=== PATIENT | male | born 1985 | race Caucasian/White ===

== ENCOUNTER 2025-01-19 19:47 | Inpatient (IN) | payer OTHER ==
[~2025-01-19] VITALS: Ht 180.3 cm; Wt 90.2 kg
[2025-01-19] MEDS ORDERED: FAMOtidine 10 MG/ML (4ML VIAL) IV ONE (20:00)
[2025-01-19] MEDS ORDERED: PIPERACILLIN/TAZOBACTAM SODIUM 3.375 GM VIAL IV ONE ×2 (20:00→21:34)
[2025-01-19] MEDS ORDERED: METHYLPREDNISOLONE SOD SUCC 125 MG VIAL IV ONE (20:00)
[2025-01-19] MEDS ORDERED: MIDAZOLAM HCL 50 MG in 0.9 % SODIUM CHLORIDE 50 ML IV SCH (20:00)
[2025-01-19] MEDS ORDERED: 0.9 % SODIUM CHLORIDE 1,000 ML IV ONE (20:00)
[2025-01-19] MEDS ORDERED: NOREPINEPHRINE BITARTRATE 8 MG in DEXTROSE 5 % IN WATER 250 ML IV SCH (20:00)
[2025-01-19] MEDS ORDERED: EPINEPHRINE HCL/PF 1 MG/ML AMPUL IV ONE (20:00)
[2025-01-19 20:38] LABS: BASO % 0.6 % (0.1-1.2); EOS # 0.16 (0.04-0.54); EOS % 0.9 % (0.7-7.0); LYMPH # 3.61 (1.18-3.74); LYMPH % 20.6 % (19.3-53.1); MEAN PLATELET VOLUME 11.10 fl (9.4-12.4); MONO # 0.61 (0.24-0.82); MONO % 3.5 % (4.7-12.5); NEUT # 12.10 (1.56-6.13); NEUT % 69.3 % (34.0-71.1); RED CELL DISTRIBUTION WIDTH 12.6 % (11.6-14.4)
[2025-01-19 20:45] LABS: URINE APPEARANCE Clear; URINE BILIRRUBIN Negative (NEGATIVE); URINE BLOOD Small; URINE COLOR Yellow; URINE KETONE Negative (NEGATIVE); URINE LEUKOCYTE Negative; URINE NITRATE Negative; URINE UROBILINOGEN 0.2 E.U./dl
[2025-01-19 20:48] LABS: URINE BACTERIA 245.9 uL (0.0-1933); URINE CAST 7.07 uL (0.0-1.40); URINE EPITHELIAL CELLS 4.5 uL (0.0-38.8); URINE RBC 3.0 uL (0.0-20.8); URINE WBC 21.5 uL (0.0-23.2)
[2025-01-19 21:00] LABS: INR 1.26
[2025-01-19 21:06] LABS: ALT/SGPT 122.0 U/L (12-78); AST/SGOT 133.0 U/L (15-37); BILIRUBIN TOTAL 0.35 mg/dL (0.3-1.2); BUN CREA RATIO 10.0 (7.0-25.0); CREATININE SERUM 1.41 mg/dL (0.70-1.30); GFR 56.25; GLOBULINA 2.6 G/DL (2.4-3.5); OSMOLALITY SERUM 291.0 MOSM/KG (275-295)
[2025-01-19 21:09] LABS: GLUCOSE FASTING 298.0 mg/dL (65-100)
[2025-01-19 21:13] LABS: BAND MAN 8.0 %; BASOPHIL MAN 1.0 %; EOSINOPHIL MAN 1.0 %; LYMPHOCYTE MAN 26.0 %; MONOCYTE MAN 2.0 %; NEUTROPHILS MAN 58.0 %; URINE GLUCOSE 100 MG/DL (NEGATIVE); URINE PROTEIN 100 (NEGATIVE)
[2025-01-19 21:14] LABS: METAMYELOCYTE 3.0 %; MYELOCYTE 1.0 %
[2025-01-19] MEDS ORDERED: FAMOTIDINE/PF 20 MG/2 ML VIAL ONE (21:34)
[2025-01-19] MEDS ORDERED: METHYLPREDNISOLONE SOD SUCC 125 MG VIAL ONE (21:34)
[2025-01-19 22:44] LABS: ABG PH 7.281 (7.35-7.45); BICARBONATE 25.0 mmol/l (23-25)
[2025-01-19 22:45] LABS: ABG PO2 45.6 mmHg (80-100); o2 100 %
[2025-01-19] MEDS ORDERED: INSULIN REGULAR, HUMAN 1,000 UNIT/10 ML UNITS IV ONE (22:45)
[2025-01-20] MEDS ORDERED: METHYLPREDNISOLONE SOD SUCC 125 MG VIAL IV ONE (00:30)
[2025-01-20] MEDS ORDERED: IPRATROPIUM BROMIDE 0.5 MG/2.5 ML AMPUL.NEB IH SCH ×2 (01:00→20:00)
[2025-01-20] MEDS ORDERED: LEVALBUTEROL HCL 1.25 MG/3 ML SOLUTION IH SCH (01:00)
[2025-01-20] MEDS ORDERED: METHYLPREDNISOLONE SOD SUCC 125 MG VIAL ONE (01:22)
[2025-01-20] MEDS ORDERED: LEVALBUTEROL HCL 1.25 MG/3 ML SOLUTION IH ONE ×2 (02:10→05:44)
[2025-01-20] MEDS ORDERED: IPRATROPIUM BROMIDE 0.5 MG/2.5 ML AMPUL.NEB IH ONE ×3 (02:10→17:41)
[2025-01-20 03:01] LABS: ABG PH 7.348 (7.35-7.45)
[2025-01-20 03:02] LABS: ABG PO2 43.1 mmHg (80-100); BICARBONATE 25.0 mmol/l (23-25); o2 100 %
[2025-01-20] MEDS ORDERED: PROPOFOL 10,000 MCG/ML VIAL ONE (05:17)
[2025-01-20] MEDS ORDERED: PROPOFOL 100 ML IV SCH ×2 (06:30→14:45)
[2025-01-20 06:44] LABS: ABG PH 7.346 (7.35-7.45); BICARBONATE 24.2 mmol/l (23-25)
[2025-01-20 06:45] LABS: ABG PO2 46.4 mmHg (80-100)
[2025-01-20 06:46] LABS: o2 100 %
[2025-01-20] MEDS ORDERED: IPRATROPIUM/ALBUTEROL SULFATE 3 ML AMPUL.NEB IH ONE ×2 (07:43)
[2025-01-20] MEDS ORDERED: METHYLPREDNISOLONE SOD SUCC 500 MG VIAL IV STA (07:49)
[2025-01-20] MEDS ORDERED: IPRATROPIUM/ALBUTEROL SULFATE 3 ML AMPUL.NEB IH SCH (09:00)
[2025-01-20] MEDS ORDERED: PIPERACILLIN/TAZOBACTAM SODIUM 3.375 GM VIAL IV SCH (12:03)
[2025-01-20] MEDS ORDERED: PIPERACILLIN/TAZOBACTAM SODIUM 3.375 GM VIAL IV ONE ×2 (13:03→22:31)
[2025-01-20 13:06] LABS: ABG PH 7.336 (7.35-7.45); ABG PO2 67.7 mmHg (80-100); BICARBONATE 24.9 mmol/l (23-25)
[2025-01-20 15:03] LABS: o2 100 %
[2025-01-20] MEDS ORDERED: LEVALBUTEROL HCL 0.63 MG/3 ML SOLUTION IH ONE (17:41)
[2025-01-20] MEDS ORDERED: PIPERACILLIN/TAZOBACTAM SODIUM 4.5 GM in 0.9 % SODIUM CHLORIDE 100 ML IV SCH (18:38)
[2025-01-20] MEDS ORDERED: POTASSIUM CHLORIDE IN WATER 40 MEQ/100 ML PIGGYBAG IV SCH (18:40)
[2025-01-20] MEDS ORDERED: ENOXAPARIN SODIUM 40 MG/0.4 ML SYRINGE SUBCUTANEO SCH (18:41)
[2025-01-20] MEDS ORDERED: PANTOPRAZOLE SODIUM 40 MG in 0.9 % SODIUM CHLORIDE 8 ML IV PUSH SCH (18:41)
[2025-01-20] MEDS ORDERED: 0.9 % SODIUM CHLORIDE 1,000 ML IV SCH (18:45)
[2025-01-20] MEDS ORDERED: ALBUTEROL SULFATE 3 ML/2.5 MG AMPUL.NEB IH SCH (20:00)
[2025-01-20 21:58] VITALS: BP 130/60; O2SAT 99
[2025-01-20] MEDS ORDERED: ENOXAPARIN SODIUM 40 MG/0.4 ML SYRINGE SUBCUTANEO ONE (22:31)
[2025-01-20] MEDS ORDERED: POTASSIUM CHLORIDE IN WATER 40 MEQ/100 ML PIGGYBAG IV ONE (22:31)
[2025-01-20 22:52] VITALS: BP 123/61
[2025-01-21] VITALS (17 sets, daily range): BP systolic 105–139; BP diastolic 52–79; O2SAT 94–100
[2025-01-21] MEDS ORDERED: IPRATROPIUM BROMIDE 0.5 MG/2.5 ML AMPUL.NEB IH ONE (00:40)
[2025-01-21] MEDS ORDERED: ALBUTEROL SULFATE 3 ML/2.5 MG AMPUL.NEB IH ONE (00:41)
[2025-01-21] MEDS ORDERED: PROPOFOL 10,000 MCG/ML VIAL ONE ×2 (02:57→08:26)
[2025-01-21 03:52] LABS: ALT/SGPT 66.0 U/L (12-78); AST/SGOT 56.0 U/L (15-37); BILIRUBIN TOTAL 0.46 mg/dL (0.3-1.2); BUN CREA RATIO 17.0 (7.0-25.0); CREATININE SERUM 0.99 mg/dL (0.70-1.30); GFR 84.6; GLOBULINA 2.2 G/DL (2.4-3.5); GLUCOSE FASTING 130.0 mg/dL (65-100); OSMOLALITY SERUM 281.0 MOSM/KG (275-295)
[2025-01-21 04:16] LABS: METHADONE NEGATIVE (NEGATIVE); OPIATES NEGATIVE (NEGATIVE); THC ( Cannabinoids) NEGATIVE (NEGATIVE)
[2025-01-21 04:34] LABS: COCAINE POSITIVE (NEGATIVE)
[2025-01-21] MEDS ORDERED: PIPERACILLIN/TAZOBACTAM SODIUM 3.375 GM VIAL IV ONE (06:37)
[2025-01-21] MEDS ORDERED: CHLORHEXIDINE GLUCONATE 120 ML BOTTLE TOP ONE (08:45)
[2025-01-21 10:17] LABS: ABG PH 7.380 (7.35-7.45); ABG PO2 91.1 mmHg (80-100); BICARBONATE 26.8 mmol/l (23-25); o2 100 %
[2025-01-21] MEDS ORDERED: MIDAZOLAM HCL 2 MG/2 ML VIAL IV PUSH STA (11:05)
[2025-01-21] MEDS ORDERED: PROPOFOL 10,000 MCG/ML VIAL IV PUSH STA (11:07)
[2025-01-21] MEDS ORDERED: ALBUTEROL SULFATE 3 ML/2.5 MG AMPUL.NEB IH SCH (14:00)
[2025-01-21] MEDS ORDERED: FentaNYL CITRATE/PF 1,000 MCG in 0.9 % SODIUM CHLORIDE 100 ML IV SCH (16:30)
[2025-01-21] MEDS ORDERED: SODIUM CHLORIDE 0.9% IV SCH (20:00)
[2025-01-21] MEDS ORDERED: MIDAZOLAM HCL IV SCH (20:00)
[2025-01-22] VITALS (17 sets, daily range): BP systolic 110–151; BP diastolic 52–78; O2SAT 92–100
[2025-01-22] MEDS ORDERED: DEXTROSE 10 % IN WATER 1,000 ML IV SCH (07:00)
[2025-01-22 08:44] LABS: BASO % 0.3 % (0.1-1.2); EOS # 0.11 (0.04-0.54); EOS % 0.9 % (0.7-7.0); LYMPH # 0.68 (1.18-3.74); LYMPH % 5.4 % (19.3-53.1); MEAN PLATELET VOLUME 10.80 fl (9.4-12.4); MONO # 0.25 (0.24-0.82); MONO % 2.0 % (4.7-12.5); NEUT # 11.37 (1.56-6.13); NEUT % 91.0 % (34.0-71.1); RED CELL DISTRIBUTION WIDTH 13.2 % (11.6-14.4)
[2025-01-22 09:10] LABS: INR 1.15
[2025-01-22 09:22] LABS: ALT/SGPT 47.0 U/L (12-78); AST/SGOT 36.0 U/L (15-37); BILIRUBIN TOTAL 0.58 mg/dL (0.3-1.2); BILIRUBIN,CONJUGATED 0.18 mg/dL (0.0-0.2); BUN CREA RATIO 15.0 (7.0-25.0); CREATININE SERUM 0.89 mg/dL (0.70-1.30); GFR 95.66; GLOBULINA 2.7 G/DL (2.4-3.5); GLUCOSE FASTING 96.0 mg/dL (65-100); OSMOLALITY SERUM 281.0 MOSM/KG (275-295)
[2025-01-22] MEDS ORDERED: CHLORHEXIDINE GLUCONATE 15ML BRUSH KIT MM SCH (09:23)
[2025-01-22] MEDS ORDERED: POLYVINYL ALCOHOL 15 ML DROPS OP SCH (09:23)
[2025-01-22] MEDS ORDERED: NAPH,MB-DB/K PH,MBDB 1 PKT PACKET PO SCH (10:35)
[2025-01-22] MEDS ORDERED: POTASSIUM PHOS,M-BASIC-D-BASIC 3 MM/ML VIAL IV SCH (13:00)
[2025-01-22 17:05] LABS: ABG PH 7.376 (7.35-7.45); ABG PO2 76.3 mmHg (80-100); BICARBONATE 27.2 mmol/l (23-25); o2 100 %
[2025-01-22] MEDS ORDERED: MIDAZOLAM HCL 100 MG in 0.9 % SODIUM CHLORIDE 100 ML IV SCH (20:00)
[2025-01-23] VITALS (15 sets, daily range): BP systolic 110–132; BP diastolic 66–83; O2SAT 89–100
[2025-01-23 09:18] LABS: ABG PH 7.382 (7.35-7.45); ABG PO2 91.6 mmHg (80-100); BICARBONATE 24.9 mmol/l (23-25)
[2025-01-23 12:22] LABS: BASO % 0.5 % (0.1-1.2); EOS # 0.47 (0.04-0.54); EOS % 4.7 % (0.7-7.0); LYMPH # 0.37 (1.18-3.74); LYMPH % 3.7 % (19.3-53.1); MEAN PLATELET VOLUME 10.90 fl (9.4-12.4); MONO # 0.46 (0.24-0.82); MONO % 4.6 % (4.7-12.5); NEUT # 8.62 (1.56-6.13); NEUT % 85.7 % (34.0-71.1); RED CELL DISTRIBUTION WIDTH 13.7 % (11.6-14.4)
[2025-01-23 13:57] LABS: ALT/SGPT 35.0 U/L (12-78); AST/SGOT 31.0 U/L (15-37); BILIRUBIN TOTAL 0.41 mg/dL (0.3-1.2); BUN CREA RATIO 19.0 (7.0-25.0); CREATININE SERUM 0.73 mg/dL (0.70-1.30); GFR 120.24; GLOBULINA 2.8 G/DL (2.4-3.5); GLUCOSE FASTING 100.0 mg/dL (65-100); OSMOLALITY SERUM 286.0 MOSM/KG (275-295)
[2025-01-23] MEDS ORDERED: POTASSIUM PHOS,M-BASIC-D-BASIC 3 MM/ML VIAL PO ONE (14:15)
[2025-01-23 15:23] LABS: o2 100 %
[2025-01-23] MEDS ORDERED: POTASSIUM PHOS,M-BASIC-D-BASIC 3 MM/ML VIAL IV ONE (17:00)
[2025-01-23] MEDS ORDERED: DEXTROSE 5 % AND 0.9 % NACL 1,000 ML IV SCH (22:30)
[2025-01-24] VITALS (13 sets, daily range): BP systolic 117–136; BP diastolic 66–76; O2SAT 90–98
[2025-01-24] MEDS ORDERED: PANTOPRAZOLE SODIUM 40 MG/VIAL VIAL IV PUSH SCH (09:00)
[2025-01-24 09:06] LABS: ABG PH 7.345 (7.35-7.45); ABG PO2 86.0 mmHg (80-100); BICARBONATE 27.3 mmol/l (23-25)
[2025-01-24 11:39] LABS: o2 90 %
[2025-01-24 14:39] LABS: URINE APPEARANCE Clear; URINE BILIRRUBIN Negative (NEGATIVE); URINE BLOOD Negative; URINE COLOR Dark Yellow; URINE KETONE Trace (NEGATIVE); URINE LEUKOCYTE Trace; URINE NITRATE Negative; URINE UROBILINOGEN 1.0 E.U./dl
[2025-01-24 14:43] LABS: URINE BACTERIA 23.2 uL (0.0-1933); URINE EPITHELIAL CELLS 30.2 uL (0.0-38.8); URINE RBC 38.7 uL (0.0-20.8); URINE WBC 14.7 uL (0.0-23.2)
[2025-01-24 15:16] LABS: URINE CAST 0.29 uL (0.0-1.40); URINE GLUCOSE 100 MG/DL (NEGATIVE); URINE PROTEIN 100 (NEGATIVE)
[2025-01-24] MEDS ORDERED: POTASSIUM PHOS,M-BASIC-D-BASIC 45mM/15ml VIAL IV ONE (22:28)
[2025-01-24] MEDS ORDERED: POTASSIUM PHOS,M-BASIC-D-BASIC 3 MM/ML VIAL IV SCH (22:31)
[2025-01-25] VITALS (14 sets, daily range): BP systolic 121–149; BP diastolic 64–86; O2SAT 92–111
[2025-01-25 06:54] LABS: ABG PH 7.286 (7.35-7.45); ABG PO2 85.9 mmHg (80-100); BICARBONATE 28.4 mmol/l (23-25)
[2025-01-25 06:55] LABS: o2 90 %
[2025-01-25 06:57] LABS: BASO % 0.3 % (0.1-1.2); EOS # 0.32 (0.04-0.54); EOS % 2.5 % (0.7-7.0); LYMPH # 0.50 (1.18-3.74); LYMPH % 3.9 % (19.3-53.1); MEAN PLATELET VOLUME 10.60 fl (9.4-12.4); MONO # 0.63 (0.24-0.82); MONO % 4.9 % (4.7-12.5); NEUT # 11.14 (1.56-6.13); NEUT % 87.0 % (34.0-71.1); RED CELL DISTRIBUTION WIDTH 14.0 % (11.6-14.4)
[2025-01-25 07:23] LABS: ALT/SGPT 28.0 U/L (12-78); AST/SGOT 25.0 U/L (15-37); BILIRUBIN TOTAL 0.36 mg/dL (0.3-1.2); BUN CREA RATIO 18.0 (7.0-25.0); CREATININE SERUM 0.87 mg/dL (0.70-1.30); GFR 98.2; GLOBULINA 3.0 G/DL (2.4-3.5); GLUCOSE FASTING 123.0 mg/dL (65-100); OSMOLALITY SERUM 295.0 MOSM/KG (275-295)
[2025-01-25] MEDS ORDERED: MEROPENEM 500 MG/VIAL VIAL IV SCH (12:00)
[2025-01-25] MEDS ORDERED: FLUCONAZOLE IN NACL,ISO-OSM 200 MG/100 ML PIGGYBAG IV SCH (12:00)
[2025-01-26] VITALS (14 sets, daily range): BP systolic 130–161; BP diastolic 68–85; O2SAT 88–95
[2025-01-26 07:14] LABS: BASO % 0.4 % (0.1-1.2); EOS # 0.04 (0.04-0.54); EOS % 0.2 % (0.7-7.0); LYMPH # 0.50 (1.18-3.74); LYMPH % 2.5 % (19.3-53.1); MEAN PLATELET VOLUME 10.70 fl (9.4-12.4); MONO # 0.75 (0.24-0.82); MONO % 3.7 % (4.7-12.5); NEUT # 18.68 (1.56-6.13); NEUT % 91.6 % (34.0-71.1); RED CELL DISTRIBUTION WIDTH 14.5 % (11.6-14.4)
[2025-01-26 07:46] LABS: ABG PH 7.250 (7.35-7.45); ABG PO2 71.5 mmHg (80-100); BICARBONATE 34.5 mmol/l (23-25)
[2025-01-26 07:51] LABS: BUN CREA RATIO 22.0 (7.0-25.0); CREATININE SERUM 0.72 mg/dL (0.70-1.30); GFR 122.17
[2025-01-26 07:58] LABS: GLUCOSE FASTING 336.0 mg/dL (65-100); OSMOLALITY SERUM 314.0 MOSM/KG (275-295)
[2025-01-26] MEDS ORDERED: LINEZOLID IN DEXTROSE 5% 300 ML IV SCH (08:10)
[2025-01-26] MEDS ORDERED: METOPROLOL TARTRATE 25 MG TABLET PO SCH (09:00)
[2025-01-26 09:28] LABS: o2 100 %
[2025-01-26 09:48] LABS: URINE APPEARANCE Cloudy; URINE BACTERIA 18.3 uL (0.0-1933); URINE BILIRRUBIN Negative (NEGATIVE); URINE BLOOD Moderate; URINE CAST 1.91 uL (0.0-1.40); URINE COLOR Yellow; URINE EPITHELIAL CELLS 46.6 uL (0.0-38.8); URINE KETONE Negative (NEGATIVE); URINE LEUKOCYTE Negative; URINE NITRATE Negative; URINE RBC 219.3 uL (0.0-20.8); URINE UROBILINOGEN 1.0 E.U./dl; URINE WBC 13.9 uL (0.0-23.2)
[2025-01-26 10:07] LABS: TYPE CELLS SQUAMOUS; URINE GLUCOSE 100 MG/DL (NEGATIVE); URINE PROTEIN 100 (NEGATIVE)
[2025-01-26] MEDS ORDERED: CISATRACURIUM BESYLATE 100 MG in 0.9 % SODIUM CHLORIDE 250 ML IV SCH ×2 (13:45→14:15)
[2025-01-26] MEDS ORDERED: CISATRACURIUM BESYLATE 20 MG/10 ML VIAL IV PUSH ONE (14:15)
[2025-01-26] MEDS ORDERED: SODIUM CL 0.9% 250 ML IV.SOLN ONE ×4 (14:15→14:16)
[2025-01-26] MEDS ORDERED: FentaNYL CITRATE/PF 1,000 MCG in 0.9 % SODIUM CHLORIDE 100 ML IV SCH (14:30)
[2025-01-26 14:35] LABS: ABG PH 7.275 (7.35-7.45); ABG PO2 68.7 mmHg (80-100); BICARBONATE 36.0 mmol/l (23-25)
[2025-01-26 14:42] LABS: o2 100 %
[2025-01-26] MEDS ORDERED: levoFLOXacin IN DEXTROSE 5 % 150 ML IV SCH (17:00)
[2025-01-26 17:34] LABS: ABG PO2 69.1 mmHg (80-100); BICARBONATE 37.2 mmol/l (23-25)
[2025-01-26] MEDS ORDERED: DEXAMETHASONE SODIUM PHOSP/PF 10 MG/ML VIAL IV SCH (17:45)
[2025-01-26 18:07] LABS: ABG PO2 77.7 mmHg (80-100); BICARBONATE 37.7 mmol/l (23-25)
[2025-01-26 18:24] LABS: ABG PH 7.195 (7.35-7.45)
[2025-01-26 18:28] LABS: o2 100 %
[2025-01-26 18:31] LABS: ABG PH 7.182 (7.35-7.45)
[2025-01-26 18:32] LABS: o2 100 %
[2025-01-26] MEDS ORDERED: INSULIN LISPRO 1,000 UNIT/10 ML UNITS SUBCUTANEO PRN (21:00)
[2025-01-26] MEDS ORDERED: DEXTROSE 50 % IN WATER 0.5 G/ML VIAL IV PRN (21:00)
[2025-01-26] MEDS ORDERED: SODIUM BICARBONATE 50MEQ/50ML VIAL IV ONE (21:55)
[2025-01-26] MEDS ORDERED: SODIUM BICARBONATE 100 MEQ in DEXTROSE 5 % IN WATER 1,000 ML IV SCH (22:00)
[2025-01-26 23:47] LABS: ABG PO2 89.3 mmHg (80-100); BICARBONATE 38.8 mmol/l (23-25)
[2025-01-27] VITALS (12 sets, daily range): BP systolic 125–155; BP diastolic 70–86; O2SAT 90–100
[2025-01-27 00:07] LABS: ABG PH 7.183 (7.35-7.45)
[2025-01-27 00:08] LABS: o2 100 %
[2025-01-27 06:16] LABS: ABG PO2 118.1 mmHg (80-100); BICARBONATE 39.9 mmol/l (23-25)
[2025-01-27 08:01] LABS: BASO % 0.3 % (0.1-1.2); EOS # 0.00 (0.04-0.54); EOS % 0.0 % (0.7-7.0); LYMPH # 0.34 (1.18-3.74); LYMPH % 1.6 % (19.3-53.1); MEAN PLATELET VOLUME 11.90 fl (9.4-12.4); MONO # 0.24 (0.24-0.82); MONO % 1.1 % (4.7-12.5); NEUT # 20.90 (1.56-6.13); NEUT % 95.5 % (34.0-71.1); RED CELL DISTRIBUTION WIDTH 14.5 % (11.6-14.4)
[2025-01-27 08:20] LABS: ABG PH 7.197 (7.35-7.45); o2 100 %
[2025-01-27 08:26] LABS: ALT/SGPT 20.0 U/L (12-78); AST/SGOT 16.0 U/L (15-37); BILIRUBIN TOTAL 0.27 mg/dL (0.3-1.2); BUN CREA RATIO 33.0 (7.0-25.0); CREATININE SERUM 0.66 mg/dL (0.70-1.30); GFR 135.08; GLOBULINA 3.4 G/DL (2.4-3.5); GLUCOSE FASTING 161.0 mg/dL (65-100); OSMOLALITY SERUM 307.0 MOSM/KG (275-295)
[2025-01-27] MEDS ORDERED: SODIUM BICARBONATE 100 MEQ in DEXTROSE 5 % IN WATER 1,000 ML IV SCH (10:30)
[2025-01-28] VITALS (12 sets, daily range): BP systolic 96–129; BP diastolic 60–73; O2SAT 97–100
[2025-01-28 05:07] LABS: ABG PH 7.234 (7.35-7.45); ABG PO2 63.2 mmHg (80-100); BICARBONATE 45.4 mmol/l (23-25)
[2025-01-28 05:11] LABS: o2 80 %
[2025-01-28 07:21] LABS: BASO % 0.2 % (0.1-1.2); EOS # 0.00 (0.04-0.54); EOS % 0.0 % (0.7-7.0); LYMPH # 0.46 (1.18-3.74); LYMPH % 1.9 % (19.3-53.1); MEAN PLATELET VOLUME 12.50 fl (9.4-12.4); MONO # 0.72 (0.24-0.82); MONO % 3.0 % (4.7-12.5); NEUT # 22.40 (1.56-6.13); NEUT % 92.8 % (34.0-71.1); RED CELL DISTRIBUTION WIDTH 14.6 % (11.6-14.4)
[2025-01-28 07:37] LABS: BUN CREA RATIO 38.0 (7.0-25.0); CREATININE SERUM 0.9 mg/dL (0.70-1.30); GFR 94.44; GLUCOSE FASTING 172.0 mg/dL (65-100)
[2025-01-28 08:11] LABS: OSMOLALITY SERUM 315.0 MOSM/KG (275-295)
[2025-01-28 11:27] LABS: ABG PH 7.274 (7.35-7.45); ABG PO2 150.4 mmHg (80-100); BICARBONATE 45.3 mmol/l (23-25)
[2025-01-28] MEDS ORDERED: CISATRACURIUM BESYLATE IV SCH (12:45)
[2025-01-28] MEDS ORDERED: FENTANYL CITRATE IV SCH (12:45)
[2025-01-28] MEDS ORDERED: WATER IV SCH ×3 (12:45→13:00)
[2025-01-28] MEDS ORDERED: DEXTROSE 5% IV SCH ×3 (12:45→13:00)
[2025-01-28] MEDS ORDERED: MIDAZOLAM HCL IV SCH (13:00)
[2025-01-28] MEDS ORDERED: VANCOMYCIN HCL 5 MG/ML REDILUIDO IV STA (14:28)
[2025-01-28 15:08] LABS: o2 80 %
[2025-01-28 20:27] LABS: ABG PH 7.324 (7.35-7.45); ABG PO2 93.9 mmHg (80-100); BICARBONATE 44.6 mmol/l (23-25)
[2025-01-28 20:39] LABS: o2 60 %
[2025-01-29] VITALS (13 sets, daily range): BP systolic 109–132; BP diastolic 68–82; O2SAT 97–100
[2025-01-29] MEDS ORDERED: VANCOMYCIN HCL 5 MG/ML REDILUIDO IV SCH (01:00)
[2025-01-29 04:42] LABS: ABG PH 7.278 (7.35-7.45); ABG PO2 120.8 mmHg (80-100); BICARBONATE 44.4 mmol/l (23-25)
[2025-01-29 12:40] LABS: BASO % 0.2 % (0.1-1.2); EOS # 0.00 (0.04-0.54); EOS % 0.0 % (0.7-7.0); LYMPH # 0.44 (1.18-3.74); LYMPH % 2.2 % (19.3-53.1); MEAN PLATELET VOLUME 12.30 fl (9.4-12.4); MONO # 0.67 (0.24-0.82); MONO % 3.4 % (4.7-12.5); NEUT # 18.32 (1.56-6.13); NEUT % 92.8 % (34.0-71.1); RED CELL DISTRIBUTION WIDTH 14.3 % (11.6-14.4)
[2025-01-29 12:51] LABS: ABG PH 7.346 (7.35-7.45); ABG PO2 76.1 mmHg (80-100); BICARBONATE 45.7 mmol/l (23-25)
[2025-01-29 12:55] LABS: BUN CREA RATIO 48.0 (7.0-25.0); CREATININE SERUM 0.79 mg/dL (0.70-1.30); GFR 109.77
[2025-01-29 13:01] LABS: GLUCOSE FASTING 225.0 mg/dL (65-100); OSMOLALITY SERUM 312.0 MOSM/KG (275-295)
[2025-01-29 19:31] LABS: o2 60 %
[2025-01-29 19:34] LABS: o2 50 %
[2025-01-29 21:53] LABS: D DIMER > 35.20 MG/L
[2025-01-30] VITALS (14 sets, daily range): BP systolic 112–155; BP diastolic 64–95; O2SAT 98–100
[2025-01-30 06:09] LABS: ABG PH 7.413 (7.35-7.45); ABG PO2 84.3 mmHg (80-100); BICARBONATE 43.3 mmol/l (23-25)
[2025-01-30 06:23] LABS: o2 60 %
[2025-01-30 10:31] LABS: BASO % 0.2 % (0.1-1.2); EOS # 0.00 (0.04-0.54); EOS % 0.0 % (0.7-7.0); LYMPH # 0.52 (1.18-3.74); LYMPH % 2.0 % (19.3-53.1); MEAN PLATELET VOLUME 12.10 fl (9.4-12.4); MONO # 0.59 (0.24-0.82); MONO % 2.3 % (4.7-12.5); NEUT # 24.34 (1.56-6.13); NEUT % 93.9 % (34.0-71.1); RED CELL DISTRIBUTION WIDTH 13.8 % (11.6-14.4)
[2025-01-30] MEDS ORDERED: ENOXAPARIN SODIUM 100 MG/ML SYRINGE SUBCUTANEO NR (12:00)
[2025-01-30] MEDS ORDERED: MUPIROCIN 15 GM OINT..GM TUBE NASAL SCH (17:00)
[2025-01-30] MEDS ORDERED: VANCOMYCIN HCL 5 MG/ML REDILUIDO IV SCH (21:00)
[2025-01-30] MEDS ORDERED: ENOXAPARIN SODIUM 100 MG/ML SYRINGE SUBCUTANEO SCH (21:00)
[2025-01-30 23:12] LABS: INR 1.66
[2025-01-31] VITALS (14 sets, daily range): BP systolic 101–157; BP diastolic 58–736; O2SAT 97–100
[2025-01-31 06:22] LABS: ABG PH 7.380 (7.35-7.45); ABG PO2 134.1 mmHg (80-100); BICARBONATE 45.9 mmol/l (23-25)
[2025-01-31 06:46] LABS: o2 50 %
[2025-01-31 06:46] LABS: BASO % 0.2 % (0.1-1.2); EOS # 0.00 (0.04-0.54); EOS % 0.0 % (0.7-7.0); LYMPH # 0.35 (1.18-3.74); LYMPH % 1.8 % (19.3-53.1); MEAN PLATELET VOLUME 11.70 fl (9.4-12.4); MONO # 0.36 (0.24-0.82); MONO % 1.8 % (4.7-12.5); NEUT # 18.77 (1.56-6.13); NEUT % 94.9 % (34.0-71.1); RED CELL DISTRIBUTION WIDTH 13.7 % (11.6-14.4)
[2025-01-31 07:40] LABS: BUN CREA RATIO 50.0 (7.0-25.0); CREATININE SERUM 0.66 mg/dL (0.70-1.30); GFR 135.08
[2025-01-31 07:50] LABS: OSMOLALITY SERUM 308.0 MOSM/KG (275-295)
[2025-01-31 07:51] LABS: GLUCOSE FASTING 422.0 mg/dL (65-100)
[2025-01-31] MEDS ORDERED: CHLORHEXIDINE GLUCONATE 120 ML BOTTLE TOP SCH (09:00)
[2025-01-31] MEDS ORDERED: METOPROLOL TARTRATE 25 MG TABLET PO SCH (09:00)
[2025-01-31] MEDS ORDERED: PHYTONADIONE 10 MG/ML AMPUL SUBCUTANEO SCH (09:08)
[2025-01-31 09:36] LABS: ABG PH 7.366 (7.35-7.45); ABG PO2 90.8 mmHg (80-100); BICARBONATE 42.0 mmol/l (23-25)
[2025-01-31 10:00] LABS: o2 50 %
[2025-01-31 10:42] LABS: ALT/SGPT 21 U/L (12-78); AST/SGOT 27 U/L (15-37); BILIRUBIN TOTAL 0.42 mg/dL (0.3-1.2); BUN CREA RATIO 57 (7.0-25.0); CREATININE SERUM 0.58 mg/dL (0.70-1.30); GFR 156.80; GLOBULINA 3.3 G/DL (2.4-3.5); GLUCOSE FASTING 161 mg/dL (65-100)
[2025-01-31 12:27] LABS: OSMOLALITY SERUM 311 MOSM/KG (275-295)
[2025-01-31] MEDS ORDERED: PHYTONADIONE 10 MG/ML AMPUL SUBCUTANEO NR (13:00)
[2025-02-01] VITALS (13 sets, daily range): BP systolic 117–147; BP diastolic 62–88; O2SAT 94–100
[2025-02-01 06:27] LABS: ABG PH 7.421 (7.35-7.45); ABG PO2 149.5 mmHg (80-100); BICARBONATE 44.2 mmol/l (23-25)
[2025-02-01 06:53] LABS: o2 60 %
[2025-02-01] MEDS ORDERED: PHYTONADIONE 10 MG/ML AMPUL SUBCUTANEO SCH (09:00)
[2025-02-01 12:53] LABS: BASO % 0.1 % (0.1-1.2); EOS # 0.01 (0.04-0.54); EOS % 0.1 % (0.7-7.0); LYMPH # 0.73 (1.18-3.74); LYMPH % 4.6 % (19.3-53.1); MEAN PLATELET VOLUME 11.00 fl (9.4-12.4); MONO # 0.47 (0.24-0.82); MONO % 3.0 % (4.7-12.5); NEUT # 14.30 (1.56-6.13); NEUT % 90.7 % (34.0-71.1); RED CELL DISTRIBUTION WIDTH 13.4 % (11.6-14.4)
[2025-02-01 13:56] LABS: BUN CREA RATIO 47.0 (7.0-25.0); CREATININE SERUM 0.62 mg/dL (0.70-1.30); GFR 145.18; GLUCOSE FASTING 129.0 mg/dL (65-100); OSMOLALITY SERUM 302.0 MOSM/KG (275-295)
[2025-02-01] MEDS ORDERED: ACETAZOLAMIDE 250 MG TABLET PO SCH (17:00)
[2025-02-02] VITALS (13 sets, daily range): BP systolic 128–146; BP diastolic 70–89; O2SAT 96–100
[2025-02-02 06:15] LABS: ABG PH 7.447 (7.35-7.45); ABG PO2 80.3 mmHg (80-100); BICARBONATE 28.8 mmol/l (23-25)
[2025-02-02 06:37] LABS: o2 50 %
[2025-02-02] MEDS ORDERED: EPOETIN ALFA-EPBX 10,000 UNIT/ML VIAL (Retacrit) SUBCUTANEO SCH (12:00)
[2025-02-02] MEDS ORDERED: DEXTROSE 50 % IN WATER 0.5 G/ML VIAL IV PRN (16:50)
[2025-02-02] MEDS ORDERED: SODIUM CHLORIDE FOR INHALATION 1 VIAL.NEB IH SCH (17:00)
[2025-02-02] MEDS ORDERED: VANCOMYCIN HCL 5 MG/ML REDILUIDO IV SCH (21:00)
[2025-02-03] VITALS (14 sets, daily range): BP systolic 102–146; BP diastolic 55–89; O2SAT 90–100
[2025-02-03 05:03] LABS: ABG PH 7.415 (7.35-7.45); BICARBONATE 24.8 mmol/l (23-25)
[2025-02-03 05:14] LABS: o2 50 %
[2025-02-03 07:24] LABS: ABG PO2 51.6 mmHg (80-100)
[2025-02-03 07:35] LABS: BASO % 0.1 % (0.1-1.2); EOS # 0.04 (0.04-0.54); EOS % 0.1 % (0.7-7.0); LYMPH # 0.90 (1.18-3.74); LYMPH % 3.3 % (19.3-53.1); MEAN PLATELET VOLUME 10.80 fl (9.4-12.4); MONO # 0.61 (0.24-0.82); MONO % 2.3 % (4.7-12.5); NEUT # 24.84 (1.56-6.13); NEUT % 92.4 % (34.0-71.1); RED CELL DISTRIBUTION WIDTH 13.2 % (11.6-14.4)
[2025-02-03 07:54] LABS: ALT/SGPT 62.0 U/L (12-78); AST/SGOT 57.0 U/L (15-37); BILIRUBIN TOTAL 1.11 mg/dL (0.3-1.2); BUN CREA RATIO 34.0 (7.0-25.0); CREATININE SERUM 0.65 mg/dL (0.70-1.30); GFR 137.48; GLOBULINA 3.3 G/DL (2.4-3.5); GLUCOSE FASTING 103.0 mg/dL (65-100); OSMOLALITY SERUM 292.0 MOSM/KG (275-295)
[2025-02-03] MEDS ORDERED: MIDAZOLAM HCL 100 MG in 0.9 % SODIUM CHLORIDE 100 ML IV SCH (08:15)
[2025-02-03 11:18] LABS: URINE APPEARANCE Clear; URINE BILIRRUBIN Small (NEGATIVE); URINE BLOOD Negative; URINE COLOR Dark Yellow; URINE GLUCOSE Negative (NEGATIVE); URINE KETONE Trace (NEGATIVE); URINE LEUKOCYTE Negative; URINE NITRATE Negative; URINE PROTEIN 30 (NEGATIVE); URINE UROBILINOGEN 1.0 E.U./dl
[2025-02-03 11:19] LABS: URINE BACTERIA 47.7 uL (0.0-1933); URINE EPITHELIAL CELLS 14.4 uL (0.0-38.8); URINE RBC 20.3 uL (0.0-20.8); URINE WBC 40.1 uL (0.0-23.2)
[2025-02-03 12:32] LABS: URINE CAST 0.14 uL (0.0-1.40)
[2025-02-03] MEDS ORDERED: LIDOCAINE HCL 1% 10ML VIAL ONE (12:53)
[2025-02-03] MEDS ORDERED: SODIUM CHLORIDE FOR INHALATION 1 VIAL.NEB IH SCH (21:00)
[2025-02-04] VITALS (14 sets, daily range): BP systolic 94–134; BP diastolic 51–81; O2SAT 94–100
[2025-02-04 06:25] LABS: ABG PH 7.352 (7.35-7.45); ABG PO2 207.0 mmHg (80-100); BICARBONATE 30.2 mmol/l (23-25)
[2025-02-04 06:59] LABS: o2 100 %
[2025-02-04] MEDS ORDERED: FentaNYL CITRATE/PF 1,000 MCG in 0.9 % SODIUM CHLORIDE 100 ML IV SCH (12:00)
[2025-02-05] VITALS (16 sets, daily range): BP systolic 95–126; BP diastolic 52–71; O2SAT 94–100
[2025-02-05 06:50] LABS: ALT/SGPT 47.0 U/L (12-78); AST/SGOT 32.0 U/L (15-37); BILIRUBIN TOTAL 0.45 mg/dL (0.3-1.2); BUN CREA RATIO 40.0 (7.0-25.0); CREATININE SERUM 0.63 mg/dL (0.70-1.30); GFR 142.53; GLOBULINA 3.1 G/DL (2.4-3.5); GLUCOSE FASTING 145.0 mg/dL (65-100); OSMOLALITY SERUM 290.0 MOSM/KG (275-295)
[2025-02-05 08:33] LABS: ABG PH 7.300 (7.35-7.45); ABG PO2 80.2 mmHg (80-100); BICARBONATE 33.8 mmol/l (23-25)
[2025-02-05 11:22] LABS: o2 50 %
[2025-02-05] MEDS ORDERED: DEXTROSE 5% IV SCH ×2 (11:45→17:00)
[2025-02-05] MEDS ORDERED: WATER IV SCH ×2 (11:45→17:00)
[2025-02-05] MEDS ORDERED: FENTANYL CITRATE IV SCH (11:45)
[2025-02-05 14:14] LABS: ABG PH 7.300 (7.35-7.45); ABG PO2 82.5 mmHg (80-100); BICARBONATE 34.5 mmol/l (23-25)
[2025-02-05 14:52] LABS: o2 50 %
[2025-02-05] MEDS ORDERED: SULBACTAM NA IV SCH (17:00)
[2025-02-05] MEDS ORDERED: AMPICILLIN SODIUM IV SCH (17:00)
[2025-02-05] MEDS ORDERED: DEXAMETHASONE SODIUM PHOSPHATE 4 MG/ML VIAL IV SCH (17:00)
[2025-02-05] MEDS ORDERED: DEXAMETHASONE SODIUM PHOSP/PF 10 MG/ML VIAL IV SCH (17:00)
[2025-02-05] MEDS ORDERED: SULFAMETHOXAZOLE/TRIMETHOPRIM 16 MG/ML 10ML VIAL IV SCH (18:00)
[2025-02-06] VITALS (12 sets, daily range): BP systolic 96–119; BP diastolic 57–69; O2SAT 94–100
[2025-02-06 05:23] LABS: ABG PH 7.303 (7.35-7.45); ABG PO2 79.7 mmHg (80-100); BICARBONATE 34.3 mmol/l (23-25)
[2025-02-06 06:04] LABS: o2 60 %
[2025-02-06 06:45] LABS: BASO % 0.1 % (0.1-1.2); EOS # 0.00 (0.04-0.54); EOS % 0.0 % (0.7-7.0); LYMPH # 0.20 (1.18-3.74); LYMPH % 0.9 % (19.3-53.1); MEAN PLATELET VOLUME 10.80 fl (9.4-12.4); MONO # 0.64 (0.24-0.82); MONO % 2.7 % (4.7-12.5); NEUT # 22.28 (1.56-6.13); NEUT % 95.0 % (34.0-71.1); RED CELL DISTRIBUTION WIDTH 13.2 % (11.6-14.4)
[2025-02-06] MEDS ORDERED: DEXTROSE 5%-WATER 100ML IV.SOLN ONE (07:09)
[2025-02-06 07:40] LABS: ALT/SGPT 36.0 U/L (12-78); AST/SGOT 16.0 U/L (15-37); BILIRUBIN TOTAL 0.48 mg/dL (0.3-1.2); BUN CREA RATIO 37.0 (7.0-25.0); CREATININE SERUM 0.52 mg/dL (0.70-1.30); GFR 177.86; GLOBULINA 3.1 G/DL (2.4-3.5); GLUCOSE FASTING 141.0 mg/dL (65-100); OSMOLALITY SERUM 286.0 MOSM/KG (275-295)
[2025-02-06] MEDS ORDERED: CEFIDEROCOL SULFATE TOSYLATE 1 GM VIAL IV NR (09:00)
[2025-02-06] MEDS ORDERED: CEFIDEROCOL SULFATE TOSYLATE 1 GM VIAL IV SCH ×3 (12:00→18:00)
[2025-02-06] MEDS ORDERED: SULBACTAM IV SCH (13:00)
[2025-02-06] MEDS ORDERED: AMPICILLIN SODIUM IV SCH (13:00)
[2025-02-07] VITALS (14 sets, daily range): BP systolic 104–136; BP diastolic 61–84; O2SAT 97–100
[2025-02-07 06:28] LABS: BASO % 0.1 % (0.1-1.2); EOS # 0.00 (0.04-0.54); EOS % 0.0 % (0.7-7.0); LYMPH # 0.29 (1.18-3.74); LYMPH % 1.7 % (19.3-53.1); MEAN PLATELET VOLUME 10.70 fl (9.4-12.4); MONO # 0.45 (0.24-0.82); MONO % 2.6 % (4.7-12.5); NEUT # 16.49 (1.56-6.13); NEUT % 94.1 % (34.0-71.1); RED CELL DISTRIBUTION WIDTH 13.4 % (11.6-14.4)
[2025-02-07 06:50] LABS: ABG PH 7.445 (7.35-7.45); ABG PO2 64.3 mmHg (80-100); BICARBONATE 38.4 mmol/l (23-25)
[2025-02-07 06:57] LABS: o2 60 %
[2025-02-07 07:13] LABS: ALT/SGPT 39.0 U/L (12-78); AST/SGOT 24.0 U/L (15-37); BILIRUBIN TOTAL 0.58 mg/dL (0.3-1.2); BUN CREA RATIO 37.0 (7.0-25.0); CREATININE SERUM 0.51 mg/dL (0.70-1.30); GFR 181.89; GLOBULINA 3.1 G/DL (2.4-3.5); GLUCOSE FASTING 159.0 mg/dL (65-100); OSMOLALITY SERUM 289.0 MOSM/KG (275-295)
[2025-02-07] MEDS ORDERED: AMINO ACIDS/PROTEIN HYDROLYS 30 ML BLIST.PACK NGT SCH (19:30)
[2025-02-08] VITALS (13 sets, daily range): BP systolic 102–136; BP diastolic 60–83; O2SAT 88–99
[2025-02-08] MEDS ORDERED: ACETAMINOPHEN 500 MG GEL..CAP PO ONE (03:54)
[2025-02-08] MEDS ORDERED: ACETAMINOPHEN 325 MG TABLET PO PRN (04:15)
[2025-02-08 05:35] LABS: BASO % 0.4 % (0.1-1.2); EOS # 0.09 (0.04-0.54); EOS % 0.5 % (0.7-7.0); LYMPH # 0.77 (1.18-3.74); LYMPH % 4.1 % (19.3-53.1); MEAN PLATELET VOLUME 10.50 fl (9.4-12.4); MONO # 0.50 (0.24-0.82); MONO % 2.7 % (4.7-12.5); NEUT # 16.36 (1.56-6.13); NEUT % 87.4 % (34.0-71.1); RED CELL DISTRIBUTION WIDTH 15.0 % (11.6-14.4)
[2025-02-08 06:09] LABS: ABG PH 7.409 (7.35-7.45); ABG PO2 70.2 mmHg (80-100); BICARBONATE 42.3 mmol/l (23-25)
[2025-02-08 06:21] LABS: o2 70 %
[2025-02-08 06:41] LABS: BAND MAN 8.0 %; LYMPHOCYTE MAN 5.0 %; MONOCYTE MAN 3.0 %; NEUTROPHILS MAN 82.0 %
[2025-02-08] MEDS ORDERED: ACETAMINOPHEN 500 MG GEL..CAP PO PRN (08:15)
[2025-02-08] MEDS ORDERED: VANCOMYCIN HCL 5 MG/ML REDILUIDO IV STA (09:24)
[2025-02-08 11:32] LABS: COVID-19 AG NEGATIVE (NEGATIVE)
[2025-02-08 11:55] LABS: URINE APPEARANCE Clear; URINE BILIRRUBIN Negative (NEGATIVE); URINE BLOOD Negative; URINE COLOR Yellow; URINE GLUCOSE Negative (NEGATIVE); URINE KETONE Negative (NEGATIVE); URINE LEUKOCYTE Negative; URINE NITRATE Negative; URINE PROTEIN 30 (NEGATIVE); URINE UROBILINOGEN 1.0 E.U./dl
[2025-02-08 11:58] LABS: URINE BACTERIA 9.7 uL (0.0-1933); URINE EPITHELIAL CELLS 3.4 uL (0.0-38.8); URINE RBC 8.2 uL (0.0-20.8); URINE WBC 2.3 uL (0.0-23.2)
[2025-02-08 12:02] LABS: URINE CAST 0.58 uL (0.0-1.40)
[2025-02-08] MEDS ORDERED: VANCOMYCIN HCL 5 MG/ML REDILUIDO IV SCH (17:00)
[2025-02-08 22:32] LABS: ABG PH 7.408 (7.35-7.45)
[2025-02-08 22:33] LABS: ABG PO2 76.1 mmHg (80-100)
[2025-02-08 22:34] LABS: BICARBONATE 42.7 mmol/l (23-25)
[2025-02-08 22:35] LABS: o2 70 %
[2025-02-09] VITALS (18 sets, daily range): BP systolic 91–134; BP diastolic 49–82; O2SAT 88–113
[2025-02-09] MEDS ORDERED: NOREPINEPHRINE BITARTRATE 1 MG/ML AMPUL IV ONE (01:59)
[2025-02-09] MEDS ORDERED: NOREPINEPHRINE BITARTRATE 8 MG in DEXTROSE 5 % IN WATER 250 ML IV SCH (03:30)
[2025-02-09 05:16] LABS: ABG PH 7.426 (7.35-7.45); ABG PO2 103.4 mmHg (80-100); BICARBONATE 44.2 mmol/l (23-25)
[2025-02-09] MEDS ORDERED: ANIDULAFUNGIN 100 MG VIAL IV STA (08:09)
[2025-02-09 08:14] LABS: o2 100 %
[2025-02-09] MEDS ORDERED: SULFAMETHOXAZOLE/TRIMETHOPRIM 16 MG/ML 10ML VIAL IV STA (08:16)
[2025-02-09 09:31] LABS: BASO % 0.6 % (0.1-1.2); EOS # 0.32 (0.04-0.54); EOS % 1.3 % (0.7-7.0); LYMPH # 0.99 (1.18-3.74); LYMPH % 4.1 % (19.3-53.1); MEAN PLATELET VOLUME 10.20 fl (9.4-12.4); MONO # 0.42 (0.24-0.82); MONO % 1.7 % (4.7-12.5); NEUT # 21.72 (1.56-6.13); NEUT % 88.8 % (34.0-71.1); RED CELL DISTRIBUTION WIDTH 14.8 % (11.6-14.4)
[2025-02-09 10:10] LABS: BAND MAN 5.0 %; LYMPHOCYTE MAN 1.0 %; NEUTROPHILS MAN 87.0 %
[2025-02-09 10:11] LABS: EOSINOPHIL MAN 3.0 %; METAMYELOCYTE 1.0 %; MYELOCYTE 2.0 %
[2025-02-09 10:34] LABS: ALT/SGPT 81.0 U/L (12-78); AST/SGOT 37.0 U/L (15-37); BILIRUBIN TOTAL 0.76 mg/dL (0.3-1.2); BUN CREA RATIO 30.0 (7.0-25.0); CREATININE SERUM 0.6 mg/dL (0.70-1.30); GFR 150.78; GLOBULINA 3.9 G/DL (2.4-3.5); GLUCOSE FASTING 106.0 mg/dL (65-100); LDH 327.0 U/L (87-241); OSMOLALITY SERUM 287.0 MOSM/KG (275-295)
[2025-02-09] MEDS ORDERED: DEXMEDETOMIDINE IN 0.9 % NACL 100 ML IV SCH (14:00)
[2025-02-09] MEDS ORDERED: SULFAMETHOXAZOLE/TRIMETHOPRIM 16 MG/ML 10ML VIAL IV SCH (17:00)
[2025-02-10] VITALS (18 sets, daily range): BP systolic 93–126; BP diastolic 57–799; O2SAT 87–93
[2025-02-10 05:47] LABS: ABG PH 7.384 (7.35-7.45); ABG PO2 67.0 mmHg (80-100); BICARBONATE 49.1 mmol/l (23-25)
[2025-02-10 08:16] LABS: o2 100 %
[2025-02-10] MEDS ORDERED: ANIDULAFUNGIN 100 MG VIAL IV SCH (09:00)
[2025-02-10] MEDS ORDERED: MIDAZOLAM HCL 2 MG/2 ML VIAL IV PUSH ONE (11:15)
[2025-02-10] MEDS ORDERED: MIDAZOLAM HCL 2 MG/2 ML VIAL IV ONE (15:00)
[2025-02-11] VITALS (14 sets, daily range): BP systolic 99–127; BP diastolic 57–74; O2SAT 87–94
[2025-02-11 05:39] LABS: ABG PH 7.368 (7.35-7.45); ABG PO2 79.0 mmHg (80-100); BICARBONATE 48.0 mmol/l (23-25)
[2025-02-11 05:44] LABS: o2 100 %
[2025-02-12] VITALS (14 sets, daily range): BP systolic 109–137; BP diastolic 48–70; O2SAT 88–99
[2025-02-12 07:49] LABS: ABG PH 7.408 (7.35-7.45); ABG PO2 86.4 mmHg (80-100)
[2025-02-12 07:50] LABS: BICARBONATE 43.7 mmol/l (23-25)
[2025-02-12 07:53] LABS: o2 100 %
[2025-02-12 12:39] LABS: BASO % 0.3 % (0.1-1.2); EOS # 0.30 (0.04-0.54); EOS % 1.1 % (0.7-7.0); LYMPH # 0.59 (1.18-3.74); LYMPH % 2.2 % (19.3-53.1); MEAN PLATELET VOLUME 10.10 fl (9.4-12.4); MONO # 0.55 (0.24-0.82); MONO % 2.0 % (4.7-12.5); NEUT # 25.15 (1.56-6.13); NEUT % 93.1 % (34.0-71.1); RED CELL DISTRIBUTION WIDTH 14.4 % (11.6-14.4)
[2025-02-12 16:08] LABS: ALT/SGPT 32.0 U/L (12-78); AST/SGOT 17.0 U/L (15-37); BILIRUBIN TOTAL 0.66 mg/dL (0.3-1.2); BUN CREA RATIO 61.0 (7.0-25.0); CREATININE SERUM 0.46 mg/dL (0.70-1.30); GFR 204.89; GLOBULINA 3.5 G/DL (2.4-3.5); GLUCOSE FASTING 105.0 mg/dL (65-100); OSMOLALITY SERUM 285.0 MOSM/KG (275-295)
[2025-02-13] VITALS (13 sets, daily range): BP systolic 97–137; BP diastolic 55–85; O2SAT 90–95
[2025-02-13 08:18] LABS: ABG PH 7.337 (7.35-7.45)
[2025-02-13 08:19] LABS: ABG PO2 86.5 mmHg (80-100); BICARBONATE 44.1 mmol/l (23-25)
[2025-02-13 08:20] LABS: o2 100 %
[2025-02-13] MEDS ORDERED: DEXMEDETOMIDINE HCL IV SCH (16:00)
[2025-02-13] MEDS ORDERED: SODIUM CHLORIDE 0.9% IV SCH (16:00)
[2025-02-13] MEDS ORDERED: PROPOFOL 100 ML IV SCH (19:00)
[2025-02-13] MEDS ORDERED: FENTANYL CITRATE IV SCH (22:45)
[2025-02-13] MEDS ORDERED: DEXTROSE 5% IV SCH (22:45)
[2025-02-13] MEDS ORDERED: WATER IV SCH (22:45)
[2025-02-14] VITALS (20 sets, daily range): BP systolic 93–134; BP diastolic 45–78; O2SAT 91–98
[2025-02-14] MEDS ORDERED: NOREPINEPHRINE BITARTRATE 1 MG/ML AMPUL IV ONE (05:31)
[2025-02-14] MEDS ORDERED: NOREPINEPHRINE BITARTRATE 8 MG in DEXTROSE 5 % IN WATER 250 ML IV SCH (06:15)
[2025-02-14 07:03] LABS: BASO % 0.2 % (0.1-1.2); EOS # 0.48 (0.04-0.54); EOS % 1.8 % (0.7-7.0); LYMPH # 0.88 (1.18-3.74); LYMPH % 3.3 % (19.3-53.1); MEAN PLATELET VOLUME 9.90 fl (9.4-12.4); MONO # 0.42 (0.24-0.82); MONO % 1.6 % (4.7-12.5); NEUT # 24.36 (1.56-6.13); NEUT % 92.3 % (34.0-71.1); RED CELL DISTRIBUTION WIDTH 14.2 % (11.6-14.4)
[2025-02-14 07:34] LABS: BUN CREA RATIO 54.0 (7.0-25.0); CREATININE SERUM 0.41 mg/dL (0.70-1.30); GFR 233.98; GLUCOSE FASTING 115.0 mg/dL (65-100); OSMOLALITY SERUM 285.0 MOSM/KG (275-295)
[2025-02-14] MEDS ORDERED: levoFLOXacin IN DEXTROSE 5 % 5 MG/ML PIGGYBAG IV STA (09:28)
[2025-02-14 09:55] LABS: ABG PH 7.355 (7.35-7.45); ABG PO2 62.2 mmHg (80-100); BICARBONATE 43.2 mmol/l (23-25)
[2025-02-14 11:04] LABS: o2 85 %
[2025-02-15] VITALS (23 sets, daily range): BP systolic 94–161; BP diastolic 46–68; O2SAT 89–98
[2025-02-15 07:02] LABS: BASO % 0.2 % (0.1-1.2); EOS # 0.45 (0.04-0.54); EOS % 2.1 % (0.7-7.0); LYMPH # 0.76 (1.18-3.74); LYMPH % 3.5 % (19.3-53.1); MEAN PLATELET VOLUME 10.90 fl (9.4-12.4); MONO # 0.51 (0.24-0.82); MONO % 2.4 % (4.7-12.5); NEUT # 19.60 (1.56-6.13); NEUT % 90.4 % (34.0-71.1); RED CELL DISTRIBUTION WIDTH 14.2 % (11.6-14.4)
[2025-02-15 08:52] LABS: ABG PH 7.389 (7.35-7.45); ABG PO2 64.0 mmHg (80-100); BICARBONATE 42.7 mmol/l (23-25); o2 100 %
[2025-02-15] MEDS ORDERED: levoFLOXacin IN DEXTROSE 5 % 5 MG/ML PIGGYBAG IV SCH (09:00)
[2025-02-16] VITALS (22 sets, daily range): BP systolic 102–152; BP diastolic 53–69; O2SAT 39–100
[2025-02-16 07:00] LABS: BASO % 0.2 % (0.1-1.2); EOS # 0.29 (0.04-0.54); EOS % 1.8 % (0.7-7.0); LYMPH # 0.74 (1.18-3.74); LYMPH % 4.6 % (19.3-53.1); MEAN PLATELET VOLUME 10.60 fl (9.4-12.4); MONO # 0.43 (0.24-0.82); MONO % 2.7 % (4.7-12.5); NEUT # 14.43 (1.56-6.13); NEUT % 89.5 % (34.0-71.1); RED CELL DISTRIBUTION WIDTH 14.4 % (11.6-14.4)
[2025-02-16 07:33] LABS: BUN CREA RATIO 44.0 (7.0-25.0); CREATININE SERUM 0.36 mg/dL (0.70-1.30); GFR 271.87; GLUCOSE FASTING 105.0 mg/dL (65-100); OSMOLALITY SERUM 287.0 MOSM/KG (275-295)
[2025-02-16 08:38] LABS: ABG PH 7.422 (7.35-7.45); BICARBONATE 46.5 mmol/l (23-25)
[2025-02-16 08:53] LABS: BASO % 0.3 % (0.1-1.2); EOS # 0.36 (0.04-0.54); EOS % 2.4 % (0.7-7.0); LYMPH # 0.81 (1.18-3.74); LYMPH % 5.5 % (19.3-53.1); MEAN PLATELET VOLUME 10.00 fl (9.4-12.4); MONO # 0.43 (0.24-0.82); MONO % 2.9 % (4.7-12.5); NEUT # 12.91 (1.56-6.13); NEUT % 87.6 % (34.0-71.1); RED CELL DISTRIBUTION WIDTH 14.5 % (11.6-14.4)
[2025-02-16 10:08] LABS: ALT/SGPT 24.0 U/L (12-78); AST/SGOT 17.0 U/L (15-37); BILIRUBIN TOTAL 0.41 mg/dL (0.3-1.2); BUN CREA RATIO 42.0 (7.0-25.0); CREATININE SERUM 0.36 mg/dL (0.70-1.30); GFR 271.87; GLOBULINA 3.3 G/DL (2.4-3.5); GLUCOSE FASTING 100.0 mg/dL (65-100); OSMOLALITY SERUM 288.0 MOSM/KG (275-295)
[2025-02-16 13:03] LABS: ABG PO2 50.7 mmHg (80-100); o2 100 %
[2025-02-17] VITALS (19 sets, daily range): BP systolic 100–134; BP diastolic 56–76; O2SAT 83–91
[2025-02-17 08:55] LABS: ABG PH 7.414 (7.35-7.45); BICARBONATE 47.2 mmol/l (23-25); o2 100 %
[2025-02-17 08:56] LABS: ABG PO2 44.7 mmHg (80-100)
[2025-02-17 09:46] LABS: BASO % 0.3 % (0.1-1.2); EOS # 0.43 (0.04-0.54); EOS % 2.4 % (0.7-7.0); LYMPH # 0.89 (1.18-3.74); LYMPH % 4.9 % (19.3-53.1); MEAN PLATELET VOLUME 10.30 fl (9.4-12.4); MONO # 0.58 (0.24-0.82); MONO % 3.2 % (4.7-12.5); NEUT # 16.10 (1.56-6.13); NEUT % 88.3 % (34.0-71.1); RED CELL DISTRIBUTION WIDTH 15.4 % (11.6-14.4)
[2025-02-17] MEDS ORDERED: METHYLPREDNISOLONE SOD SUCC 40 MG VIAL IV STA (12:18)
[2025-02-17] MEDS ORDERED: METHYLPREDNISOLONE SOD SUCC 125 MG VIAL IV SCH (18:00)
[2025-02-18] VITALS (18 sets, daily range): BP systolic 101–125; BP diastolic 59–67; O2SAT 89–93
[2025-02-18 08:12] LABS: BASO % 0.2 % (0.1-1.2); EOS # 0.00 (0.04-0.54); EOS % 0.0 % (0.7-7.0); LYMPH # 0.50 (1.18-3.74); LYMPH % 3.2 % (19.3-53.1); MEAN PLATELET VOLUME 10.80 fl (9.4-12.4); MONO # 0.15 (0.24-0.82); MONO % 0.9 % (4.7-12.5); NEUT # 15.03 (1.56-6.13); NEUT % 94.8 % (34.0-71.1); RED CELL DISTRIBUTION WIDTH 14.7 % (11.6-14.4)
[2025-02-18 08:22] LABS: BUN CREA RATIO 35 (7.0-25.0); CREATININE SERUM 0.48 mg/dL (0.70-1.30); GFR 195.07; GLUCOSE FASTING 170 mg/dL (65-100); OSMOLALITY SERUM 287 MOSM/KG (275-295)
[2025-02-18 08:31] LABS: ABG PH 7.275 (7.35-7.45); BICARBONATE 52.2 mmol/l (23-25)
[2025-02-18 08:36] LABS: ABG PO2 74.8 mmHg (80-100); o2 100 %
[2025-02-19] VITALS (14 sets, daily range): BP systolic 114–141; BP diastolic 63–78; O2SAT 72–95
[2025-02-19 07:53] LABS: BASO % 0.1 % (0.1-1.2); EOS # 0.00 (0.04-0.54); EOS % 0.0 % (0.7-7.0); LYMPH # 0.59 (1.18-3.74); LYMPH % 3.0 % (19.3-53.1); MEAN PLATELET VOLUME 9.90 fl (9.4-12.4); MONO # 0.40 (0.24-0.82); MONO % 2.0 % (4.7-12.5); NEUT # 18.41 (1.56-6.13); NEUT % 93.7 % (34.0-71.1); RED CELL DISTRIBUTION WIDTH 14.7 % (11.6-14.4)
[2025-02-19] MEDS ORDERED: CISATRACURIUM BESYLATE 20 MG/10 ML VIAL IV PUSH NR (08:00)
[2025-02-19] MEDS ORDERED: CISATRACURIUM BESYLATE 100 MG in 0.9 % SODIUM CHLORIDE 250 ML IV SCH (08:00)
[2025-02-19 08:08] LABS: ABG PH 7.390 (7.35-7.45)
[2025-02-19 08:09] LABS: ABG PO2 37.5 mmHg (80-100); BICARBONATE 50.7 mmol/l (23-25)
[2025-02-19 08:10] LABS: o2 100 %
[2025-02-19 08:52] LABS: ALT/SGPT 36.0 U/L (12-78); AST/SGOT 22.0 U/L (15-37); BILIRUBIN TOTAL 0.42 mg/dL (0.3-1.2); BUN CREA RATIO 47.0 (7.0-25.0); CREATININE SERUM 0.47 mg/dL (0.70-1.30); GFR 199.86; GLOBULINA 3.9 G/DL (2.4-3.5); GLUCOSE FASTING 188.0 mg/dL (65-100); OSMOLALITY SERUM 293.0 MOSM/KG (275-295)
[2025-02-19 18:38] LABS: BASO % 0.1 % (0.1-1.2); EOS # 0.00 (0.04-0.54); EOS % 0.0 % (0.7-7.0); LYMPH # 0.53 (1.18-3.74); LYMPH % 3.0 % (19.3-53.1); MEAN PLATELET VOLUME 9.80 fl (9.4-12.4); MONO # 0.74 (0.24-0.82); MONO % 4.1 % (4.7-12.5); NEUT # 16.41 (1.56-6.13); NEUT % 91.6 % (34.0-71.1); RED CELL DISTRIBUTION WIDTH 14.5 % (11.6-14.4)
[2025-02-19 20:50] LABS: ABG PH 7.335 (7.35-7.45); BICARBONATE 51.4 mmol/l (23-25)
[2025-02-19 21:12] LABS: ABG PO2 49.9 mmHg (80-100)
[2025-02-19 21:13] LABS: o2 80 %
[2025-02-20] VITALS (15 sets, daily range): BP systolic 124–150; BP diastolic 67–85; O2SAT 88–95
[2025-02-20 07:05] LABS: BASO % 0.1 % (0.1-1.2); EOS # 0.00 (0.04-0.54); EOS % 0.0 % (0.7-7.0); LYMPH # 0.46 (1.18-3.74); LYMPH % 3.2 % (19.3-53.1); MEAN PLATELET VOLUME 10.40 fl (9.4-12.4); MONO # 0.52 (0.24-0.82); MONO % 3.6 % (4.7-12.5); NEUT # 13.15 (1.56-6.13); NEUT % 92.1 % (34.0-71.1); RED CELL DISTRIBUTION WIDTH 14.4 % (11.6-14.4)
[2025-02-20 07:29] LABS: ALT/SGPT 34.0 U/L (12-78); AST/SGOT 19.0 U/L (15-37); BILIRUBIN TOTAL 0.39 mg/dL (0.3-1.2); BUN CREA RATIO 83.0 (7.0-25.0); CREATININE SERUM 0.3 mg/dL (0.70-1.30); GFR 335.53; GLOBULINA 3.6 G/DL (2.4-3.5); GLUCOSE FASTING 149.0 mg/dL (65-100); OSMOLALITY SERUM 292.0 MOSM/KG (275-295)
[2025-02-20 09:07] LABS: ABG PH 7.410 (7.35-7.45)
[2025-02-20 09:08] LABS: ABG PO2 72.9 mmHg (80-100); BICARBONATE 53.1 mmol/l (23-25)
[2025-02-20 09:09] LABS: o2 100 %
[2025-02-20] MEDS ORDERED: CISATRACURIUM BESYLATE 100 MG in 0.9 % SODIUM CHLORIDE 250 ML IV SCH (10:15)
[2025-02-20] MEDS ORDERED: CISATRACURIUM BESYLATE 20 MG/10 ML VIAL IV NR (10:15)
[2025-02-20 20:18] LABS: ABG PH 7.411 (7.35-7.45)
[2025-02-20 20:19] LABS: ABG PO2 51.0 mmHg (80-100)
[2025-02-20 20:20] LABS: BICARBONATE 50.3 mmol/l (23-25)
[2025-02-20 20:21] LABS: o2 100 %
[2025-02-21] VITALS (17 sets, daily range): BP systolic 109–166; BP diastolic 55–96; O2SAT 86–100
[2025-02-21 08:31] LABS: ABG PH 7.356 (7.35-7.45)
[2025-02-21 08:32] LABS: ABG PO2 55.6 mmHg (80-100); BICARBONATE 53.4 mmol/l (23-25); o2 100 %
[2025-02-21] MEDS ORDERED: PROPOFOL 10,000 MCG/ML VIAL IV PUSH PRN (11:30)
[2025-02-21] MEDS ORDERED: AMPICILLIN SOD IV SCH (13:00)
[2025-02-21] MEDS ORDERED: [UNRECOGNIZED DRUG - OTHER] IV SCH (13:00)
[2025-02-22] VITALS (17 sets, daily range): BP systolic 109–154; BP diastolic 64–93; O2SAT 91–98
[2025-02-22 06:45] LABS: BASO % 0.2 % (0.1-1.2); EOS # 0.04 (0.04-0.54); EOS % 0.2 % (0.7-7.0); LYMPH # 0.38 (1.18-3.74); LYMPH % 2.3 % (19.3-53.1); MEAN PLATELET VOLUME 11.10 fl (9.4-12.4); MONO # 0.41 (0.24-0.82); MONO % 2.5 % (4.7-12.5); NEUT # 15.21 (1.56-6.13); NEUT % 93.9 % (34.0-71.1); RED CELL DISTRIBUTION WIDTH 14.1 % (11.6-14.4)
[2025-02-22 07:32] LABS: GLUCOSE FASTING 140.0 mg/dL (65-100); OSMOLALITY SERUM 301.0 MOSM/KG (275-295)
[2025-02-22 07:46] LABS: BUN CREA RATIO 114.0 (7.0-25.0); CREATININE SERUM 0.21 mg/dL (0.70-1.30); GFR 506.39
[2025-02-22] MEDS ORDERED: METHYLPREDNISOLONE SOD SUCC 40 MG VIAL IV SCH (12:00)
[2025-02-22] MEDS ORDERED: POTASSIUM CHLORIDE IN WATER 100 ML IV NR (13:05)
[2025-02-22 14:00] LABS: ABG PH 7.409 (7.35-7.45)
[2025-02-22 14:01] LABS: ABG PO2 78.7 mmHg (80-100); BICARBONATE 54.4 mmol/l (23-25); o2 100 %
[2025-02-23] VITALS (22 sets, daily range): BP systolic 117–150; BP diastolic 53–585; O2SAT 85–97
[2025-02-23] MEDS ORDERED: POTASSIUM CHLORIDE IN WATER 100 ML IV NR (10:00)
[2025-02-23 11:05] LABS: ABG PH 7.408 (7.35-7.45)
[2025-02-23 11:06] LABS: ABG PO2 65.0 mmHg (80-100); BICARBONATE 49.3 mmol/l (23-25)
[2025-02-23 11:07] LABS: o2 90 %
[2025-02-23] MEDS ORDERED: METHYLPREDNISOLONE SOD SUCC 40 MG VIAL IV SCH (12:00)
[2025-02-24] VITALS (16 sets, daily range): BP systolic 105–182; BP diastolic 52–94; O2SAT 76–99
[2025-02-24 08:06] LABS: BASO % 0.3 % (0.1-1.2); EOS # 0.02 (0.04-0.54); EOS % 0.1 % (0.7-7.0); LYMPH # 0.39 (1.18-3.74); LYMPH % 1.5 % (19.3-53.1); MEAN PLATELET VOLUME 12.50 fl (9.4-12.4); MONO # 0.49 (0.24-0.82); MONO % 1.8 % (4.7-12.5); NEUT # 24.99 (1.56-6.13); NEUT % 94.2 % (34.0-71.1); RED CELL DISTRIBUTION WIDTH 14.1 % (11.6-14.4)
[2025-02-24 08:21] LABS: GLUCOSE FASTING 119.0 mg/dL (65-100); OSMOLALITY SERUM 289.0 MOSM/KG (275-295)
[2025-02-24 09:10] LABS: BUN CREA RATIO 92.0 (7.0-25.0); GFR 434.08
[2025-02-24 09:14] LABS: CREATININE SERUM 0.24 mg/dL (0.70-1.30)
[2025-02-24 09:32] LABS: ABG PH 7.321 (7.35-7.45)
[2025-02-24 09:33] LABS: ABG PO2 51.0 mmHg (80-100); BICARBONATE 51.8 mmol/l (23-25)
[2025-02-24 09:34] LABS: o2 100 %
[2025-02-24 13:30] LABS: INR 1.31
[2025-02-25] VITALS (15 sets, daily range): BP systolic 91–161; BP diastolic 49–87; O2SAT 23–92
[2025-02-25 11:14] LABS: ABG PH 7.426 (7.35-7.45); ABG PO2 61.4 mmHg (80-100); BICARBONATE 51.8 mmol/l (23-25)
[2025-02-25 22:40] LABS: o2 85 %
[2025-02-26] VITALS (20 sets, daily range): BP systolic 68–167; BP diastolic 32–95; O2SAT 80–100
[2025-02-26 06:54] LABS: BASO % 0.2 % (0.1-1.2); EOS # 0.26 (0.04-0.54); EOS % 1.0 % (0.7-7.0); LYMPH # 0.75 (1.18-3.74); LYMPH % 3.0 % (19.3-53.1); MEAN PLATELET VOLUME 13.20 fl (9.4-12.4); MONO # 0.76 (0.24-0.82); MONO % 3.1 % (4.7-12.5); NEUT # 22.41 (1.56-6.13); NEUT % 90.3 % (34.0-71.1); RED CELL DISTRIBUTION WIDTH 13.9 % (11.6-14.4)
[2025-02-26 07:20] LABS: GLUCOSE FASTING 120.0 mg/dL (65-100); OSMOLALITY SERUM 282.0 MOSM/KG (275-295)
[2025-02-26 07:37] LABS: BUN CREA RATIO 89.0 (7.0-25.0); GFR 605.02
[2025-02-26 07:38] LABS: CREATININE SERUM 0.18 mg/dL (0.70-1.30)
[2025-02-26 07:45] LABS: ABG PH 7.236 (7.35-7.45); ABG PO2 68.1 mmHg (80-100); BICARBONATE 51.5 mmol/l (23-25)
[2025-02-26 07:46] LABS: o2 100 %
[2025-02-26] MEDS ORDERED: 0.9 % SODIUM CHLORIDE 1,000 ML IV ONE (14:30)
[2025-02-26] MEDS ORDERED: METHYLPREDNISOLONE SOD SUCC 40 MG VIAL IV SCH (17:00)
[2025-02-27] VITALS (13 sets, daily range): BP systolic 115–163; BP diastolic 61–89; O2SAT 74–100
[2025-02-27 06:21] LABS: BASO % 0.4 % (0.1-1.2); EOS # 0.09 (0.04-0.54); EOS % 0.2 % (0.7-7.0); LYMPH # 0.58 (1.18-3.74); LYMPH % 1.6 % (19.3-53.1); MEAN PLATELET VOLUME 12.70 fl (9.4-12.4); MONO # 1.53 (0.24-0.82); MONO % 4.2 % (4.7-12.5); NEUT # 33.46 (1.56-6.13); NEUT % 91.2 % (34.0-71.1); RED CELL DISTRIBUTION WIDTH 14.3 % (11.6-14.4)
[2025-02-27] MEDS ORDERED: MIDAZOLAM HCL 2 MG/2 ML VIAL IV PUSH ONE (08:00)
[2025-02-27] MEDS ORDERED: PROPOFOL 10,000 MCG/ML VIAL IV PUSH ONE (08:00)
[2025-02-27] MEDS ORDERED: MIDAZOLAM HCL 50 MG in 0.9 % SODIUM CHLORIDE 50 ML IV SCH (08:15)
[2025-02-27 09:04] LABS: ABG PO2 69.3 mmHg (80-100); BICARBONATE 55.0 mmol/l (23-25)
[2025-02-27 09:22] LABS: ABG PH 7.145 (7.35-7.45)
[2025-02-27 09:23] LABS: o2 100 %
[2025-02-27] MEDS ORDERED: SODIUM BICARBONATE 150 MEQ in DEXTROSE 5 % IN WATER 1,000 ML IV SCH (10:00)
[2025-02-27] MEDS ORDERED: FLUCONAZOLE IN NACL,ISO-OSM 200 MG/100 ML PIGGYBAG IV STA (12:04)
[2025-02-27 12:05] LABS: URINE APPEARANCE Clear; URINE BILIRRUBIN Negative (NEGATIVE); URINE BLOOD Small; URINE COLOR Yellow; URINE GLUCOSE Negative (NEGATIVE); URINE KETONE Negative (NEGATIVE); URINE LEUKOCYTE Negative; URINE NITRATE Negative; URINE PROTEIN 30 (NEGATIVE); URINE UROBILINOGEN 0.2 E.U./dl
[2025-02-27 12:06] LABS: URINE BACTERIA 28.7 uL (0.0-1933); URINE CAST 10.41 uL (0.0-1.40); URINE EPITHELIAL CELLS 56.7 uL (0.0-38.8); URINE RBC 141.2 uL (0.0-20.8); URINE WBC 17.8 uL (0.0-23.2)
[2025-02-27] MEDS ORDERED: (FF) Daptomycin 50 MG/ML IV STA (12:43)
[2025-02-27] MEDS ORDERED: METHYLPREDNISOLONE SOD SUCC 125 MG VIAL IV SCH (19:06)
[2025-02-28] VITALS (14 sets, daily range): BP systolic 122–138; BP diastolic 68–85; O2SAT 75–86
[2025-02-28 07:39] LABS: ABG PH 7.265 (7.35-7.45); ABG PO2 62.5 mmHg (80-100); BICARBONATE 66.9 mmol/l (23-25)
[2025-02-28 07:49] LABS: o2 100 %
[2025-02-28] MEDS ORDERED: FLUCONAZOLE IN NACL,ISO-OSM 200 MG/100 ML PIGGYBAG IV SCH (09:00)
[2025-02-28] MEDS ORDERED: (FF) Daptomycin 50 MG/ML IV SCH (13:00)
[2025-03-01] VITALS (21 sets, daily range): BP systolic 75–129; BP diastolic 50–90; O2SAT 69–84
[2025-03-01] MEDS ORDERED: DILTIAZEM HCL 125 MG in 0.9 % SODIUM CHLORIDE 100 ML IV SCH ×2 (04:00→12:00)
[2025-03-01 07:29] LABS: BASO % 0.2 % (0.1-1.2); EOS # 0.05 (0.04-0.54); EOS % 0.2 % (0.7-7.0); LYMPH # 0.22 (1.18-3.74); LYMPH % 1.0 % (19.3-53.1); MEAN PLATELET VOLUME 12.20 fl (9.4-12.4); MONO # 0.55 (0.24-0.82); MONO % 2.4 % (4.7-12.5); NEUT # 21.49 (1.56-6.13); NEUT % 94.0 % (34.0-71.1); RED CELL DISTRIBUTION WIDTH 14.7 % (11.6-14.4)
[2025-03-01] MEDS ORDERED: AMIODARONE HCL 900 MG in DEXTROSE 5 % IN WATER 500 ML IV SCH (08:00)
[2025-03-01] MEDS ORDERED: NOREPINEPHRINE BITARTRATE 8 MG in DEXTROSE 5 % IN WATER 250 ML IV SCH (08:00)
[2025-03-01 08:05] LABS: ALT/SGPT 479.0 U/L (12-78); AST/SGOT 918.0 U/L (15-37); BILIRUBIN TOTAL 1.07 mg/dL (0.3-1.2); BUN CREA RATIO 43.0 (7.0-25.0); CREATININE SERUM 0.51 mg/dL (0.70-1.30); GFR 181.89; GLOBULINA 3.0 G/DL (2.4-3.5); GLUCOSE FASTING 163.0 mg/dL (65-100); OSMOLALITY SERUM 296.0 MOSM/KG (275-295)
[2025-03-01 08:09] LABS: ABG PH 7.286 (7.35-7.45); BICARBONATE 61.8 mmol/l (23-25)
[2025-03-01] MEDS ORDERED: AMIODARONE HCL 50 MG/ML AMPUL IV ONE (08:30)
[2025-03-01] MEDS ORDERED: AMIODARONE HCL 50 MG/ML AMPUL IV NR ×2 (08:45→14:45)
[2025-03-01] MEDS ORDERED: DIGOXIN 0.25 MG/ML AMPUL IV ONE (10:30)
[2025-03-01] MEDS ORDERED: POTASSIUM CHLORIDE 20MEQ/100ML H2O PB IV NR (10:45)
[2025-03-01] MEDS ORDERED: VANCOMYCIN HCL 5 MG/ML REDILUIDO IV SCH (13:00)
[2025-03-01 14:38] LABS: ABG PO2 54.5 mmHg (80-100)
[2025-03-01 14:39] LABS: o2 100 %
[2025-03-02] VITALS (24 sets, daily range): BP systolic 105–133; BP diastolic 45–75; O2SAT 66–79
[2025-03-02 02:42] LABS: BASO % 0.3 % (0.1-1.2); EOS # 0.00 (0.04-0.54); EOS % 0.0 % (0.7-7.0); LYMPH # 0.43 (1.18-3.74); LYMPH % 1.4 % (19.3-53.1); MEAN PLATELET VOLUME 11.40 fl (9.4-12.4); MONO # 0.85 (0.24-0.82); MONO % 2.8 % (4.7-12.5); NEUT # 28.18 (1.56-6.13); NEUT % 92.5 % (34.0-71.1); RED CELL DISTRIBUTION WIDTH 15.8 % (11.6-14.4)
[2025-03-02] MEDS ORDERED: AMIODARONE HCL 450 MG in DEXTROSE 5 % IN WATER 250 ML IV SCH (10:30)
[2025-03-02 10:40] LABS: ABG PH 7.281 (7.35-7.45)
[2025-03-02 10:42] LABS: ABG PO2 46.5 mmHg (80-100); BICARBONATE 55.9 mmol/l (23-25)
[2025-03-02 10:43] LABS: o2 100 %
[2025-03-03] VITALS (11 sets, daily range): BP systolic 81–106; BP diastolic 34–63; O2SAT 69–100
[2025-03-03 08:32] LABS: BILIRUBIN TOTAL 1.92 mg/dL (0.3-1.2); BUN CREA RATIO 22.0 (7.0-25.0); CREATININE SERUM 2.46 mg/dL (0.70-1.30); GFR 29.59; GLOBULINA 3.2 G/DL (2.4-3.5); GLUCOSE FASTING 138.0 mg/dL (65-100); OSMOLALITY SERUM 300.0 MOSM/KG (275-295)
[2025-03-03 14:36] LABS: ALT/SGPT 590.0 U/L (12-78); AST/SGOT 358.0 U/L (15-37)
[2025-03-03] MEDS ORDERED: CEFIDEROCOL SULFATE TOSYLATE 1 GM VIAL IV SCH (17:00)
[2025-03-03] MEDS ORDERED: AMPICILLIN SODIUM/SULBACTAM NA 3,000 MG VIAL IV SCH (18:00)
== END 2025-03-03 11:26 | disposition expired | DRG 922 ==
LOC: ER 19:47 → ICU-2 01-20 19:16 → ICU 01-20 19:16
PROVIDERS: Emergency Medicine; General Practice; Internal Medicine; Internal Medicine Critical Care Medicine; Internal Medicine Hematology & Oncology; Internal Medicine Infectious Disease; Student in an Organized Health Care Education/Training Program; ADMIT Internal Medicine; ATTEND Internal Medicine
PROC: 0BH18EZ Insertion of Endotracheal Airway into Trachea, Via Natural or Artificial Opening Endoscopic (ICD-10-PCS; 2025-01-19)
PROC: 5A1955Z Respiratory Ventilation, Greater than 96 Consecutive Hours (ICD-10-PCS; 2025-01-19)
PROC: 5A0 Extracorporeal or Systemic Assistance and Performance, Physiological Systems, Assistance (ICD-10-PCS; 2025-01-19)
PROC: BW24ZZZ Computerized Tomography (CT Scan) of Chest and Abdomen (ICD-10-PCS; 2025-01-19)
PROC: BW28ZZZ Computerized Tomography (CT Scan) of Head (ICD-10-PCS; 2025-01-19)
PROC: BR20ZZZ Computerized Tomography (CT Scan) of Cervical Spine (ICD-10-PCS; 2025-01-20)
PROC: B24BYZZ Ultrasonography of Heart with Aorta using Other Contrast (ICD-10-PCS; 2025-01-21)
PROC: 02HV33Z Insertion of Infusion Device into Superior Vena Cava, Percutaneous Approach (ICD-10-PCS; 2025-01-21)
PROC: 30243N1 Transfusion of Nonautologous Red Blood Cells into Central Vein, Percutaneous Approach (ICD-10-PCS; 2025-01-30)
PROC: 0W9B30Z Drainage of Left Pleural Cavity with Drainage Device, Percutaneous Approach (ICD-10-PCS; principal; 2025-02-19)
PROC: B54MZZZ Ultrasonography of Right Upper Extremity Veins (ICD-10-PCS; 2025-02-24)
PROC: B34JZZZ Ultrasonography of Left Upper Extremity Arteries (ICD-10-PCS; 2025-02-24)
PROC: B54NZZZ Ultrasonography of Left Upper Extremity Veins (ICD-10-PCS; 2025-02-24)
DX: T75.1XXA Unspecified effects of drowning and nonfatal submersion, initial encounter (principal); J15.212 Pneumonia due to Methicillin resistant Staphylococcus aureus; J69.0 Pneumonitis due to inhalation of food and vomit; J96.90 Respiratory failure, unspecified, unspecified whether with hypoxia or hypercapnia; R65.21 Severe sepsis with septic shock; E87.29 Other acidosis; N17.9 Acute kidney failure, unspecified; I82.401 Acute embolism and thrombosis of unspecified deep veins of right lower extremity; J93.9 Pneumothorax, unspecified; E87.6 Hypokalemia; F14.929 Cocaine use, unspecified with intoxication, unspecified; D64.9 Anemia, unspecified; D69.6 Thrombocytopenia, unspecified; B96.1 Klebsiella pneumoniae [K. pneumoniae] as the cause of diseases classified elsewhere; B96.0 Mycoplasma pneumoniae [M. pneumoniae] as the cause of diseases classified elsewhere; I48.91 Unspecified atrial fibrillation; K71.6 Toxic liver disease with hepatitis, not elsewhere classified; Z66 Do not resuscitate